=== PATIENT | male | born 1970 | race Caucasian/White ===

== ENCOUNTER 2016-11-10 20:56 | Emergency (ER) | payer BC ==
[2016-11-10 22:51] VITALS: BP 139/80
== END 2016-11-10 23:55 | disposition left against medical advice (07) ==
LOC: ED 20:56
DX: M79.89 Other specified soft tissue disorders (principal)

== ENCOUNTER 2017-04-26 13:00 | Emergency (ER) | payer BC ==
[2017-04-26 13:10] VITALS: BP 136/94
--- NOTE | 2017-04-26 14:29 | UC ---
FLU HPI - HPI Summary HPI Summary: 46 y/o male with h/o sinus congestion, mild cough worse in AM and night, body aches, no fever, + chills x 1 1/2 weeks. no recent illness, no recent ABX. Feels like ears clogged, but no pain, decreased appetite, no N/V - History of Current Complaint Chief Complaint: UCRespiratory Stated Complaint: cough and aches Time Seen by Provider: 04/26/17 14:09 Hx Obtained From: Patient Onset/Duration: Gradual Onset, Lasting Days, Lasting Weeks Severity Currently: Mild Severity Initially: Mild Pain Intensity: 2 Pain Scale Used: 0-10 Numeric - Allergy/Home Medications Allergies/Adverse Reactions: Allergies Allergy/AdvReac Type Severity Reaction Status Date / Time cashew nut Allergy Hives Verified 04/26/17 13:05 ENVIROMENTAL ALLERGIES Allergy Mild STUFFY NOSE Uncoded 11/10/16 21:05 Home Medications: Home Medications Acetaminophen/Dextromethorphan [Daytime Cold & Cough Liquid] 1 liq PO Q12HR PRN 04/26/17 [History Confirmed 04/26/17] PMH/Surg Hx/FS Hx/Imm Hx Previously Healthy: Yes - Surgical History Surgical History: Yes Surgery Procedure, Year, and Place: SKIN CANCER REMOVED OF CHEST 2011 -2012. - LT SHOULDER - LABRAL TEAR REPAIR, BICEP TENDON RE-ATTACHMENT - Family History Known Family History: Positive: Hypertension - Social History Alcohol Use: None Substance Use Type: None Smoking Status (MU): Never Smoked Tobacco Review of Systems Constitutional: Chills, Fatigue ENT: Ear Ache - ear fullness, Sinus Congestion, Sinus Pain/Tenderness Cardiovascular: Other - cough Is Patient Immunocompromised?: No All Other Systems Reviewed And Are Negative: Yes Physical Exam Triage Information Reviewed: Yes Appearance: No Pain Distress, Well-Nourished, Ill-Appearing - mild Vital Signs: Initial Vital Signs Temp 99.1 F 04/26/17 13:06 Pulse 80 04/26/17 13:06 Resp 18 04/26/17 13:06 BP 136/94 04/26/17 13:06 Pulse Ox 99 04/26/17 13:06 Eyes: Positive: Conjunctiva Clear ENT: Positive: Pharyngeal erythema - exudates noted on R side, mild erythema b/l , TM bulging, TM dull, TM red - L side, fluid noted b/l., Sinus tenderness - frontal b/l, Uvula midline. Negative: Tonsillar swelling, Tonsillar exudate Neck: Positive: Supple, Nontender, Enlarged Nodes @ - minimal submand b/l Respiratory: Positive: Chest non-tender, Lungs clear, Normal breath sounds, No respiratory distress, No accessory muscle use. Negative: Crackles, Rhonchi, Stridor, Wheezing Cardiovascular: Positive: RRR, No Murmur Abdomen Description: Negative: CVA Tenderness (R), CVA Tenderness (L) Neurological Exam: Normal Psychological Exam: Normal Skin Exam: Normal Flu Course/Dx - Course Course Of Treatment: sinusitis, ABX given. - Differential Dx/Diagnosis Differential Diagnosis/HQI/PQRI: Influenza, Upper Respiratory Infection Provider Diagnoses: sinusitis Discharge - Sign-Out/Discharge Documenting (check all that apply): Discharge - Discharge Plan Condition: Good Disposition: HOME Prescriptions: Azithromyxin RIVERA (NF) [Z-Rivera (Zithromax) 250 mg tabs #6] 2 tab PO .TODAY, THEN 1 DAILY #6 tab Patient Education Materials: Sinusitis (ED) Referrals: No Primary Care Phys,NOPCP [Primary Care Provider] - Additional Instructions: - Antibiotics as directed - Rest, increase fluids - REturn to ER with increased fever > 103, neck pain, shortness of breath - Billing Disposition and Condition Condition: GOOD Disposition: HOME
== END 2017-04-26 14:46 | disposition home or self-care (01) ==
LOC: UCEAST 13:00
DX: J32.9 Chronic sinusitis, unspecified (principal)
CPT/HCPCS: 99212; G0463